=== PATIENT | male | born 1950 | race Caucasian/White ===

== ENCOUNTER 2023-07-08 07:39 | Outpatient (CLI) | payer MEDICARE, BC, SELFPAY | END 2023-07-08 07:40 | disposition home or self-care (01) | LOC: INJ CL 07:41 | PROVIDERS: PCP Family Medicine; Visit Provider Family Medicine | DX: M54.16 Radiculopathy, lumbar region (principal); M51.36 Other intervertebral disc degeneration, lumbar region | CPT/HCPCS: 62323; J0702; Q9966 ==

== ENCOUNTER 2023-09-23 14:14 | Outpatient (CLI) | payer MEDICARE, BC, SELFPAY | END 2023-09-23 14:15 | disposition home or self-care (01) | LOC: INJ CL 14:15 | PROVIDERS: PCP Family Medicine; Visit Provider Family Medicine | DX: M17.11 Unilateral primary osteoarthritis, right knee (principal); M25.561 Pain in right knee | CPT/HCPCS: 64454 ==

== ENCOUNTER 2023-10-10 12:07 | Outpatient (CLI) | payer MEDICARE, BC, SELFPAY | END 2023-10-10 12:08 | disposition home or self-care (01) | LOC: INJ CL 12:08 | PROVIDERS: PCP Family Medicine; Visit Provider Family Medicine | DX: M17.11 Unilateral primary osteoarthritis, right knee (principal); M25.561 Pain in right knee; G89.29 Other chronic pain | CPT/HCPCS: 64624; J2250; J3010 ==